=== PATIENT | female | born 1950 | race Caucasian/White ===

== ENCOUNTER 2017-12-03 14:20 | Emergency (ER) | payer OTHER ==
[~2017-12-03] VITALS: Ht 185.4 cm; Wt 108.9 kg
== END 2017-12-03 18:43 | disposition home or self-care (01) ==
LOC: ER 14:20
DX: M62.830 Muscle spasm of back (principal)

== ENCOUNTER 2022-05-08 21:51 | Inpatient (IN) | payer OTHER ==
[~2022-05-08] VITALS: Ht 210.8 cm; Wt 106.6 kg
[2022-05-08] MEDS ORDERED: METFORMIN HCL500 MG (22:03)
[2022-05-08] MEDS ORDERED: CRESTOR5 MG PO (22:03)
[2022-05-08] MEDS ORDERED: TAMS0.4C PO (22:03)
== END 2022-05-15 13:25 | disposition home or self-care (01) | DRG 446 ==
LOC: ER 21:51 → MEDJ 05-09 13:45
PROVIDERS: ADMIT Internal Medicine; ATTEND Internal Medicine
PROC: BW40ZZZ Ultrasonography of Abdomen (ICD-10-PCS; principal; 2022-05-08)
DX: K80.00 Calculus of gallbladder with acute cholecystitis without obstruction (principal); E11.9 Type 2 diabetes mellitus without complications; E78.5 Hyperlipidemia, unspecified; N40.0 Benign prostatic hyperplasia without lower urinary tract symptoms; Z79.84 Long term (current) use of oral hypoglycemic drugs

== ENCOUNTER 2022-06-16 11:45 | Day surgery (SDC) | payer OTHER ==
[~2022-06-16 11:45] MED LIST: CRESTOR5 MG PO; METFORMIN HCL500 MG; TAMS0.4C PO
[2022-06-16] MEDS ORDERED: TYLENOL ARTHRI650 MG PO (13:39)
[2022-06-16] MEDS ORDERED: MIRALAX17 GM PO (13:39)
[2022-06-16] MEDS ORDERED: TRAMADOL HCL50 MG PO (13:39)
== END 2022-06-16 17:50 | disposition home or self-care (01) ==
LOC: CIR.AMB 11:45
PROVIDERS: ATTEND Surgery
DX: K80.20 Calculus of gallbladder without cholecystitis without obstruction (principal); Z88.6 Allergy status to analgesic agent; Z20.822 Contact with and (suspected) exposure to COVID-19